=== PATIENT | female | born 1980 | race Caucasian/White ===

== ENCOUNTER 2019-05-12 17:10 | Emergency (ER) | payer OTHER ==
[2019-05-12 17:16] VITALS: BP 142/73
--- NOTE | 2019-05-12 17:35 | ED Physician Documentation ---
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 She has had some minimal amount of cramping and she i s now become concerned because she is having a little bit of blood every time she wipes. This is her first and she has not had her first obstetrical visit. She is otherwise healthy and does not feel ill otherwise. Review of Systems Constitutional: denies: Fever, Chills Eyes: denies: Decreased vision Ears: denies: Ear pain Nose: denies: Congestion Throat: denies: Sore throat Cardiac: denies: Chest pain / pressure Respiratory: denies: Dyspnea, Cough GI: reports: Nausea. denies: Abdominal Pain, Vomiting : reports: Vaginal bleeding. denies: Dysuria, Frequency Skin: denies: Rash Musculoskeletal: denies: Neck pain, Back pain PD PAST MEDICAL HISTORY - Past Medical History Past Medical History: No - Allergies Allergies/Adverse Reactions: Allergies Allergy/AdvReac Type Severity Reaction Status Date / Time No Known Drug Allergies Allergy Verified 05/12/19 17:12 - Social History Does the pt smoke?: No Smoking Status: Never smoker PD ED PE NORMAL - Vitals Vital signs reviewed: Yes (hypertensive ) - General General: Alert and oriented X 3, No acute distress, Well developed/nourished - HEENT HEENT: Atraumatic, PERRL - Respiratory Respiratory: No respiratory distress - Abdomen Abdomen: Normal bowel sounds, Soft, Non tender, Non distended, No organomegaly - Derm Derm: Normal color, Warm and dry, No rash - Extremities Extremities: No deformity, No edema - Neuro 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, 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 I am unable to specifically identify a fetus or heart rate. 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 I am not concerned now with ectopic as I believe I have identified the as existing in the uterus. Departure - Departure Disposition: 01 Home, Self Care Clinical Impression: First trimester bleeding, Intrauterine Condition: Stable Instructions: ED Care, ED Miscarriage Poss Follow-Up: KYA Pino [Provider Group]
== END 2019-05-12 18:52 | disposition home or self-care (01) ==
LOC: ED 17:10
DX: O20.9 Hemorrhage in early pregnancy, unspecified (principal); O09.511 Supervision of elderly primigravida, first trimester; Z3A.01 Less than 8 weeks gestation of pregnancy
CPT/HCPCS: 36415; 84702; 99282; 99283

== ENCOUNTER 2019-09-28 22:09 | Emergency (ER) | payer OTHER ==
--- NOTE | 2019-09-28 22:54 | ED Physician Documentation ---
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 She reports pelvic cramping but no severe pain she is unsure of her blood type but reports that previously she did receive RhoGam after her previous miscarriage.Denies any history of ectopic .) Review of Systems Constitutional: reports: Reviewed and negative Eyes: reports: Reviewed and negative Ears: reports: Reviewed and negative Nose: reports: Reviewed and negative Throat: reports: Reviewed and negative Cardiac: reports: Reviewed and negative Respiratory: reports: Reviewed and negative GI: reports: Reviewed and negative : reports: Vaginal bleeding, Now EGA (5 weeks) Skin: reports: Reviewed and negative Musculoskeletal: reports: Reviewed and negative Neurologic: reports: Reviewed and negative Psychiatric: reports: Reviewed and negative Endocrine: reports: Reviewed and negative Immunocompromised: reports: Reviewed and negative PD PAST MEDICAL HISTORY - Allergies Allergies/Adverse Reactions: Allergies Allergy/AdvReac Type Severity Reaction Status Date / Time No Known Drug Allergies Allergy Verified 09/28/19 22:13 - Social History Does the pt smoke?: No Smoking Status: Never smoker PD ED PE NORMAL - Vitals Vital signs reviewed: Yes - General General: Alert and oriented X 3, No acute distress, Well developed/nourished - HEENT HEENT: Atraumatic, PERRL, Pharynx benign - Neck Neck: Supple, no meningeal sign, No adenopathy - Cardiac Cardiac: RRR, No murmur, Strong equal pulses - Respiratory Respiratory: No respiratory distress, Clear bilaterally - Abdomen Abdomen: Normal bowel sounds, Soft, Non tender, Non distended, No organomegaly - Female Female : Deferred - Rectal Rectal: Deferred - Back Back: No CVA TTP, No spinal TTP - Derm Derm: Normal color, Warm and dry, No rash - Extremities Extremities: No deformity, No edema - Neuro 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, 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, No motor deficit, No sensory deficit, Normal speech - Psych Psych: Normal mood, Normal affect Results - Vitals Vitals: Vital Signs - 24 hr 09/28/19 09/29/19 22:13 02:14 Temperature 36.5 C Heart Rate 84 78 Respiratory 14 16 Rate Blood Pressure 143/81 H 136/80 H O2 Saturation 100 100 Oxygen O2 Source Room air - Labs Labs: Laboratory Tests 09/28/19 09/29/19 09/29/19 23:04 00:20 00:20 WBC 18.9 H RBC 4.41 Hgb 13.7 Hct 40.7 MCV 92.3 MCH 31.1 H MCHC 33.7 RDW 11.9 L Plt Count 304 MPV 9.6 Neut # (Auto) 16.2 H Lymph # (Auto) 1.4 L Forrest # (Auto) 1.0 Eos # (Auto) 0.1 Baso # (Auto) 0.1 Absolute Nucleated RBC 0.00 Nucleated RBC % 0.0 Sodium 134 L Potassium 3.7 Chloride 102 Carbon Dioxide 21 Anion Gap 11.0 BUN 11 Creatinine 0.7 Estimated GFR (MDRD) 94 Glucose 115 H Calcium 9.5 HCG, Quant Urine Color YELLOW Urine Clarity CLEAR Urine pH 5.0 Ur Specific [place] >=1.030 H Urine Protein NEGATIVE Urine Glucose (UA) NEGATIVE Urine Ketones NEGATIVE Urine Occult Blood LARGE H Urine Nitrite NEGATIVE Urine Bilirubin NEGATIVE Urine Urobilinogen 0.2 (NORMAL) Ur Leukocyte Esterase NEGATIVE Urine RBC TNTC H Urine WBC 0-3 Ur Squamous Epith Cells FEW Squamous Urine Bacteria None Seen Ur Microscopic Review INDICATED Urine Culture Comments NOT INDICATED Blood Type 09/29/19 09/29/19 00:20 00:40 WBC RBC Hgb Hct MCV MCH MCHC RDW Plt Count MPV Neut # (Auto) Lymph # (Auto) Forrest # (Auto) Eos # (Auto) Baso # (Auto) Absolute Nucleated RBC Nucleated RBC % Sodium Potassium Chloride Carbon Dioxide Anion Gap BUN Creatinine Estimated GFR (MDRD) Glucose Calcium HCG, Quant 1533.00 Urine Color Urine Clarity Urine pH Ur Specific [place] Urine Protein Urine Glucose (UA) Urine Ketones Urine Occult Blood Urine Nitrite Urine Bilirubin Urine Urobilinogen Ur Leukocyte Esterase Urine RBC Urine WBC Ur Squamous Epith Cells Urine Bacteria Ur Microscopic Review Urine Culture Comments Blood Type A NEGATIVE PD MEDICAL DECISION MAKING - ED course Complexity details: re-evaluated patient (updated Patient on results of ultrasound. No intrauterine gestation identified. will provide RhoGam to this patient and [facility] considered differential (miscarriage) Departure - Departure Disposition: Home, Self Care Clinical Impression: Miscarriage Condition: Stable Instructions: Miscarriage Dc Follow-Up: Nola Treviño MD [Primary Care Provider] - Tomorrow Discharge Date/Time: 09/29/19 02:15
[2019-09-28] MEDS ORDERED: SODIUM CHLORIDE 0.9% 1,000 ML IV ONE (23:03)
[2019-09-28] MEDS ORDERED: fentaNYL 100 MCG/2 ML VIAL IVP STA (23:03)
[2019-09-28 23:15] LABS: BILIRUBIN,URINE NEGATIVE (NEGATIVE); GLUCOSE, URINE (UA) NEGATIVE (NEGATIVE); KETONES,URINE (UA) NEGATIVE (NEGATIVE); LEUKOCYTE ESTERASE, URINE NEGATIVE (NEGATIVE); NITRITE,URINE NEGATIVE (NEGATIVE); OCCULT BLOOD,URINE LARGE (NEGATIVE); PROTEIN,URINE NEGATIVE (NEGATIVE); UROBILINOGEN,URINE 0.2 (NORMAL) E.U./dL (NORMAL)
[2019-09-28 23:29] LABS: BACTERIA,URINE None Seen /HPF (None Seen); CLARITY,URINE CLEAR (CLEAR); RBC,URINE TNTC /HPF (0-5); SQUAMOUS EPITHELIAL CELL,UR FEW Squamous (<= Few)
[2019-09-29 00:32] LABS: BASOPHILS # (AUTO) 0.1 10^3/uL (0.0-0.1); BASOPHILS % (AUTO) 0.6 %; EOSINOPHILS # (AUTO) 0.1 10^3/uL (0.0-0.7); EOSINOPHILS % (AUTO) 0.4 %; HGB - HEMOGLOBIN 13.7 g/dL (12.0-16.0); LYMPHOCYTES # (AUTO) 1.4 10^3/uL (1.5-3.5); LYMPHOCYTES % (AUTO) 7.5 %; MEAN CORPUSCULAR HEMOGLOBIN 31.1 pg (27.0-31.0); MEAN CORPUSCULAR HGB CONC 33.7 g/dL (32.0-36.0); MEAN CORPUSCULAR VOLUME 92.3 fL (81.0-99.0); MEAN PLATELET VOLUME 9.6 fL (7.9-10.8); MONOCYTES % (AUTO) 5.2 %; NEUTROPHILS # (AUTO) 16.2 10^3/uL (1.5-6.6); NEUTROPHILS % (AUTO) 85.7 %; PLT - PLATELET COUNT 304 10^3/uL (130-450); RED BLOOD COUNT 4.41 10^6/uL (4.20-5.40); RED CELL DISTRIBUTION WIDTH 11.9 % (12.0-15.0); WHITE BLOOD COUNT 18.9 x10^3/uL (4.8-10.8)
[2019-09-29 00:38] LABS: CALCIUM 9.5 mg/dL (8.5-10.3); CREATININE 0.7 mg/dL (0.4-1.0)
--- NOTE | 2019-09-29 00:46 | Ultrasound Report ---
Reason: First trimester bleeding Procedure Date: 09/28/2019 Accession Number: [id number] / [id number] Procedure: US - OB First Trimester CPT Code: Final Report FULL RESULT: EXAM: FIRST TRIMESTER OBSTETRIC ULTRASOUND (Less than 11 weeks) EXAM DATE: 09/28/2019 11:36 PM. CLINICAL HISTORY: First trimester bleeding. LMP: 06/06/2020. COMPARISONS: Outside exam is not currently available. TECHNIQUE: Transabdominal and transvaginal ultrasound examination with static image documentation. Pulsed Doppler and color Doppler performed with spectral analysis. CLINICAL DATES: EGA 7 weeks 4 days with NANCY 05/12/2020 based on LMP. ASSESSMENT: Gestational Sac: Not seen. Embryo: Not seen. Cardiac activity: Not seen. Yolk sac: Not seen. Amniotic fluid: Not seen. Early placenta: Not seen. Other: Endometrial thickness 13 mm. There is a 3 mm cystic structure in the endometrium. Additional complex endometrial focus seen in the lower uterine segment measuring 1.0 x 0.7 cm. MATERNAL STRUCTURES: Uterus: Anteverted. Unremarkable. Cervix: Closed. Right Ovary/Adnexa: The ovary measures 3.0 x 2.4 x 2.6 cm, volume 10.1 cc. Possible corpus luteum measuring 1.7 x 1.2 x 1.6 cm. Normal Doppler flow signal seen in the ovary. Peak systolic velocity 14.9 cm/s. Resistive index 0.64. Left Ovary/Adnexa: The ovary measures 2.2 x 1.0 x 1.5 cm, volume 1.6 cc. Unremarkable. Normal Doppler flow signal seen in the ovary. Peak systolic velocity 6.2 cm/s. Resistive index 0.77. Free Fluid: None. Other: None. IMPRESSION: 1. No intrauterine gestation identified. Recommend correlation with quantitative serum beta-hCG level and comparison with prior outside exam. 2. Ovaries appear normal. No adnexal mass or free fluid identified. RADIA
[2019-09-29] MEDS ORDERED: RHO(D) IMMUNE GLOBULIN 300 MCG SYRINGE IM STA (01:49)
[2019-09-29 02:15] VITALS: BP 136/80
== END 2019-09-29 02:15 | disposition home or self-care (01) ==
LOC: ED 22:09
DX: O03.9 Complete or unspecified spontaneous abortion without complication (principal)
CPT/HCPCS: 36415; 76801; 76817; 80048; 81001; 81003; 84702; 85025; 86900; 86901; 87086; 96372; 99284

== ENCOUNTER 2020-08-20 16:25 | Outpatient (CLI) | payer OTHER ==
--- NOTE | 2020-08-21 10:41 | Ultrasound Report ---
PROCEDURE: OB F/U or Repeat INDICATIONS: UTERINE SIZE DATE DISCREPANCY, LOW LYING PLACENTA OUTSIDE/PRIOR DATING DATA: Last menstrual period (LMP): 12/23/2019 according to prior report of 05/11/2020 02/10/2020. LMP-based estimated date of delivery (NANCY): 09/28/2020. First dating scan (date and location): 02/10/2020. Estimated date of delivery (NANCY) from first dating scan: 09/26/2020. It is noted that the ordering pro vider has noted a due date of 09/28/2020. TECHNIQUE: Real-time scanning was performed of the fetus, with image documentation and biometric measurements. COMPARISON: Ultrasound report 02/10/2020, 05/11/2020 FINDINGS: General: A single living intrauterine gestation is present. Presentation: Vertex Placenta: Placental position is suboptimally evaluated. However, no definitive low-lying appearance is identified. Amniotic fluid index: 17.5 cm, 69th percentile for gestational age. heart rate: 140 beats per minute. Maternal cervical canal: 4.3 cm long; normal length is 2.5 cm or more. biometrics: Biparietal diameter: 8.8 cm 35 weeks 3 days Head circumference: 32.1 cm 36 weeks 2 days Abdominal circumference: 3.1 cm 35 weeks 0 days Femur length: 6.7 cm 34 weeks 4 days Estimated gestational age from initial scan: 34 weeks 3 days Composite gestational age from present scan: 35 weeks 2 days Estimated weight and percentile: 2573 g 63rd percentile Measurement variability in biometric dating: +/- 10 days from 12-20 weeks gestation, +/- 2 weeks from 20-30 weeks gestation, +/- 3 weeks at 30 weeks gestation or more. Other: Not applicable. IMPRESSION: 1. Single live intrauterine . 2. No definitive low lying placenta is identified. Reviewed by: Leilani Jang MD on 08/21/2020 10:40 AM PST Approved by: Leilani Jang MD on 08/21/2020 10:40 AM PST Station ID: [id number]
== END 2020-08-20 16:26 | disposition home or self-care (01) ==
LOC: DI 16:25
PROVIDERS: ATTEND Nurse Practitioner Obstetrics & Gynecology
DX: O26.843 Uterine size-date discrepancy, third trimester (principal); O44.43 Low lying placenta NOS or without hemorrhage, third trimester; Z3A.35 35 weeks gestation of pregnancy

== ENCOUNTER 2020-09-01 08:00 | Outpatient (CLI) | payer OTHER | END 2020-09-01 23:59 | disposition home or self-care (01) | LOC: LAB.R 08:00 | PROVIDERS: ATTEND Nurse Practitioner Obstetrics & Gynecology | DX: O99.820 Streptococcus B carrier state complicating pregnancy (principal) | CPT/HCPCS: 87797 ==

== ENCOUNTER 2020-09-03 18:45 | Outpatient (CLI) | payer OTHER ==
--- NOTE | 2020-09-04 11:37 | Ultrasound Report ---
PROCEDURE: OB F/U or Repeat INDICATIONS: LOW LYING PLACENTA OUTSIDE/PRIOR DATING DATA: Last menstrual period (LMP): 12/23/2019. LMP-based estimated date of delivery (NANCY): 09/28/2020. First dating scan (date and location): 02/10/2020. Estimated date of delivery (NANCY) from first dating scan: 09/26/2020 by ultrasound. Of note, provider NANCY is 09/28/2020 by last menstrual period. TECHNIQUE: Real-time scanning was performed of the fetus, with image documentation and biometric measurements. Endovaginal scanning: No COMPARISON: Previous ultrasound dated 08/20/2001. FINDINGS: General: A single living intrauterine gestation is present. Presentation: Vertex Placenta: Placental position is right posterior, and the inferior margin of the placenta is not visu alized on the midline image; however no intervening placenta is seen between the internal cervical os and the head. Amniotic fluid index: 14 cm, 52nd for gestational age. heart rate: 166 beats per minute. Maternal cervical canal: 1.3 cm long; normal length is 2.5 cm or more. Estimated gestational age from initial scan: 36 weeks 3 days Other: Not applicable. IMPRESSION: 1. Living IUP redemonstrated with age estimated at 36 weeks 3 days by prior ultrasound. 2. Inferior margin of the placenta is not well seen on the current examination; although there is no intervening placenta seen between the head and the internal cervical os. If indicated, translab ial or endovaginal ultrasound could be performed for further assessment. Reviewed by: GERONIMO Harden on 09/04/2020 11:36 AM PST Approved by: Nabeel Becerril MD on 09/04/2020 11:36 AM PST Station ID: [id number]
--- NOTE | 2020-09-04 11:37 | Ultrasound Report ---
PROCEDURE: OB Transvaginal INDICATIONS: LOW LYING PLACENTA- TV IF NEEDED. TECHNIQUE: Endovaginal pelvic ultrasound. COMPARISON: Prior OB ultrasound also dated 09/03/2020 and 08/20/2020. FINDINGS: Limited endovaginal ultrasound of the cervix demonstrates normal cervical length and there is no endo cervical dilatation. The head is positioned on the internal cervical os and there is no interve masha placenta is seen between the head and the internal cervical os. The inferior margin of the placenta is not visualized. IMPRESSION: Limited exam demonstrating normal appearance of the cervix and there is no intervening placenta seen between the head and the internal cervical os. Of note, the inferior margin of the placenta is not clearly seen. Reviewed by: GERONIMO Harden on 09/04/2020 11:36 AM PST Approved by: Nabeel Becerril MD on 09/04/2020 11:36 AM PST Station ID: [id number]
== END 2020-09-03 18:46 | disposition home or self-care (01) ==
LOC: DI 18:45
PROVIDERS: ATTEND Nurse Practitioner Obstetrics & Gynecology
DX: O44.43 Low lying placenta NOS or without hemorrhage, third trimester (principal); Z3A.36 36 weeks gestation of pregnancy

== ENCOUNTER 2020-09-07 17:45 | Outpatient (CLI) | payer OTHER ==
--- NOTE | 2020-09-07 20:50 | Ultrasound Report ---
PROCEDURE: OB Transvaginal INDICATIONS: LOW LYING PLACENTA, CHECK VESSELS NEAR IOS TECHNIQUE: Both transabdominal and transvaginal scanning were performed. The findings are combining t o a single report contained within the "OB Limited" examination from today. IMPRESSION: Please refer to the dedicated additional OB study from today which contains the combined report for both transabdominal and transvaginal scanning. Reviewed by: Cahva Arango MD on 09/07/2020 8:49 PM PST Approved by: Chava Arango MD on 09/07/2020 8:49 PM PST Station ID: [id number]
--- NOTE | 2020-09-07 20:57 | Ultrasound Report ---
PROCEDURE: OB Limited INDICATIONS: LOW LYING PLACENTA, MEASURE PLACENTA LOCATION FROM CERVICAL IOS OUTSIDE/PRIOR DATING DATA: Last menstrual period (LMP): 12/23/2019. LMP-based estimated date of delivery (NANCY): 09/28/2020. First dating scan (date and location): 02/10/2020, [facility] Estimated date of delivery (NANCY) from first dating scan: 09/26/2020. TECHNIQUE: Real-time scanning was performed of the fetus, with image documentation. Endovaginal scanning: Utilized for placental tip visualization COMPARISON: 08/20/2020, 09/03/2020, this study. FINDINGS: A single living intrauterine gestation is present. Presentation: Vertex Placenta: Placental position is posterior, centered to the right, without previa. The placental tip was identified in relationship to the cervical canal, and the placental tip to internal os of the cer vical canal was measured at 3.6 cm. Amniotic fluid index: 13.8 cm, 51.8% for gestational age. heart rate: 139 beats per minutes. Maternal cervical canal: 4.1 cm long; normal length is 2.5 cm or more. Estimated gestational age from initial scan: 37 weeks 0 days. IMPRESSION: The study is targeted to establish length of the cervical canal (4.1 cm) and also length of the inferior tip of the placental margin in relationship to the internal os of the cervical canal (3.6 cm). Placenta previa is not suspected. Normal amniotic fluid volume. The delivery date is proje cted to be centered on 09/26/2020 from the reported first OB ultrasound 02/10/2020 at the [facility]. Reviewed by: Chava Arango MD on 09/07/2020 8:56 PM PST Approved by: Chava Arango MD on 09/07/2020 8:56 PM PST Station ID: [id number]
== END 2020-09-07 17:46 | disposition home or self-care (01) ==
LOC: DI 17:45
PROVIDERS: ATTEND Nurse Practitioner Obstetrics & Gynecology
DX: O44.43 Low lying placenta NOS or without hemorrhage, third trimester (principal); Z3A.37 37 weeks gestation of pregnancy

== ENCOUNTER 2020-09-21 13:00 | Observation (INO) | payer OTHER ==
[2020-09-21] MEDS ORDERED: TRANEXAMIC ACID IN NACL 1,000 MG/100 ML BAG IV PRN (14:08)
[2020-09-21] MEDS ORDERED: METHYLERGONOVINE 0.2 MG/ML VIAL IM PRN (14:08)
[2020-09-21] MEDS ORDERED: miSOPROStoL 200 MCG TABLET BC PRN (14:08)
[2020-09-21] MEDS ORDERED: OXYTOCIN 10 UNIT/ML VIAL IM PRN (14:08)
[2020-09-21] MEDS ORDERED: CARBOPROST TROMETHAMINE 250 MCG/ML AMP IM PRN (14:08)
[2020-09-21] MEDS ORDERED: OXYTOCIN/SODIUM CHLORIDE 500 ML IV PRN (14:08)
[2020-09-21] MEDS ORDERED: LIDOCAINE-MPF 1% 30 ML VIAL ID PRN (14:08)
[2020-09-21] MEDS ORDERED: SODIUM CHLORIDE FLUSH 0.9% 10 ML SYRINGE IVP PRN (14:08)
[2020-09-21] MEDS ORDERED: miSOPROStoL 100 MCG TABLET BC SCH (14:30)
[2020-09-21 14:51] LABS: BASOPHILS % (AUTO) 0.3 %; EOSINOPHILS # (AUTO) 0.1 10^3/uL (0.0-0.7); HGB - HEMOGLOBIN 11.4 g/dL (12.0-16.0); LYMPHOCYTES # (AUTO) 1.5 10^3/uL (1.5-3.5); LYMPHOCYTES % (AUTO) 15.4 %; MEAN CORPUSCULAR HEMOGLOBIN 31.8 pg (27.0-31.0); MEAN CORPUSCULAR HGB CONC 34.5 g/dL (32.0-36.0); MEAN CORPUSCULAR VOLUME 91.9 fL (81.0-99.0); MEAN PLATELET VOLUME 10.5 fL (7.9-10.8); MONOCYTES # (AUTO) 0.8 10^3/uL (0.0-1.0); MONOCYTES % (AUTO) 7.5 %; NEUTROPHILS # (AUTO) 7.5 10^3/uL (1.5-6.6); NEUTROPHILS % (AUTO) 75.3 %; PLT - PLATELET COUNT 231 10^3/uL (130-450); RED BLOOD COUNT 3.59 10^6/uL (4.20-5.40); RED CELL DISTRIBUTION WIDTH 13.2 % (12.0-15.0)
[2020-09-21] MEDS ORDERED: LACTATED RINGERS 1,000 ML IV SCH (15:00)
--- NOTE | 2020-09-21 15:36 | PROVIDER PROGRESS NOTE ---
- HPI Chief Complaint: Other - Procedures OB Procedure Performed: NST Diagnosis/Indication for NST: Other Service Date of procedure: 09/21/20 - Plan Plan: Mirella is a 39yo @ 39.0wks gestation by LMP c/w 10.4wk U/S who presents to [facility] for scheduled outpatient misoprostol administration for pre- induction cervical ripening in anticipation for elective induction of labor. She reports feeling well. She denies vaginal bleeding, leakage of fluid or contractions. She reports +FM. Initially her BP was slightly elevated however a repeat was WNL. She denies JOHNSON, visual disturbances, RUQ or epigastric pain. FHR baseline 130s, moderate variability, + accels, no decels Contractions irregular, mild with soft resting tone 50mcg BC misoprostol administered Continuous monitoring x 4 hours. Pt released home with precautions. Scheduled to return for elective IOL tomorrow at 0730. Pt verbalized understanding and agrees to above plan. She denies further questions or concerns at this time.
[2020-09-21] MEDS ORDERED: SODIUM CHLORIDE FLUSH 0.9% 10 ML SYRINGE IVP SCH (17:00)
== END 2020-09-21 19:05 | disposition home or self-care (01) ==
LOC: WFO 13:00 → FBP 13:39 → WFO 14:36
PROVIDERS: ADMIT Nurse Practitioner Obstetrics & Gynecology; ATTEND Nurse Practitioner Obstetrics & Gynecology
DX: Z34.83 Encounter for supervision of other normal pregnancy, third trimester (principal); Z3A.39 39 weeks gestation of pregnancy
CPT/HCPCS: 85025; 86850; 86900; 86901; 87635; A9270; G0378

== ENCOUNTER 2020-09-22 07:28 | Inpatient (IN) | payer OTHER, MEDICAID ==
[2020-09-22] MEDS ORDERED: miSOPROStoL 200 MCG TABLET BC PRN (07:50)
[2020-09-22] MEDS ORDERED: METHYLERGONOVINE 0.2 MG/ML VIAL IM PRN (07:50)
[2020-09-22] MEDS ORDERED: LIDOCAINE-MPF 1% 30 ML VIAL ID PRN (07:50)
[2020-09-22] MEDS ORDERED: CARBOPROST TROMETHAMINE 250 MCG/ML AMP IM PRN (07:50)
[2020-09-22] MEDS ORDERED: TRANEXAMIC ACID IN NACL 1,000 MG/100 ML BAG IV PRN (07:50)
[2020-09-22] MEDS ORDERED: SODIUM CHLORIDE FLUSH 0.9% 10 ML SYRINGE IVP PRN (07:50)
[2020-09-22] MEDS ORDERED: OXYTOCIN 10 UNIT/ML VIAL IM PRN (07:50)
[2020-09-22] MEDS: SODIUM CHLORIDE FLUSH 0.9% 10 ML SYRINGE IVP SCH ×2 (07:50→20:12)
[2020-09-22] MEDS ORDERED: OXYTOCIN/SODIUM CHLORIDE 500 ML IV PRN (07:50)
--- NOTE | 2020-09-22 07:58 | HISTORY & PHYSICAL EXAMINATION ---
Admit History - Visit Reason Visit Reason: Other - : 3 Parity: 0 Premature: 0 Ectopic: 0 : 2 Care: positive: [facility] Risk/History: positive: None Complications This : positive: Other Smoking Status: Never smoker - Mother's Labs Mother's Blood Type: positive: A Mother's RH: positive: Negative GBS: positive: Group B Step Negative Rubella Status: positive: Immune Meds/Allgy - Allergies Allergies/Adverse Reactions: Allergies Allergy/AdvReac Type Severity Reaction Status Date / Time No Known Drug Allergies Allergy Verified 09/28/19 22:13 Review of Systems - Constitutional Constitutional: denies: Fatigue, Chills - Eyes Eyes: denies: Blurred vision, Spots in vision, Dipolpia - Cardiovascular Cariovascular: denies: Irregular heart rate, Chest pain, Edema - Respiratory Respiratory: denies: SOB at rest - Gastrointestinal Gastrointestinal: denies: Change in bowel habits - Integumentary Integumentary: denies: Rash, Pruritis - Neurological Neurological: denies: Headache Physical - Abdominal Exam Contraction Frequency (min/apart): 150 : irregular Contraction Intensity: positive: Mild Uterine Resting Tone: positive: Soft - Monitoring Strip Review: positive: Category I - Presentation Presentation: positive: Vertex - Vaginal Exam Membranes: positive: Membranes intact - Speculum Exam Speculum Exam Performed: positive: No Plan for Labor - Plan For Labor I expect patient to be DC'd or transferred within 96 hours.: Yes Plan for Labor: Mirella is a 40yo @ 39.1 wks gestation by LMP c/w 10.2wk U/S who prese [facility] today for elective induction of labor. She denies vaginal bleeding or leakage of fluid. Reports occasional intermittent, menstrual-like cramping since yesterday afternoon that she has difficult distinguishing from movements. She reports +FM. She received 1 dose of 50mcg BC misoprostol yesterday (09/21/2020) and was monitored x 4 hours after which she was released home with precautions. She has been a patient of [facility] since her transfer of care from [facility] at 34wks gestation. She has received adequate, consistent care through the duration of her . She has had several BPs elevated in the range of 140s/80s in the office with repeat BPs being WNL. Upon arrival to the unit yesterday and intermittently during her 4 hour stay she had elevated BPs in 140s/80s-90s range and therefore has been given the diagnosis of gestational hypertension. She has been taking daily 81mg ASA since 16wks gestation. She has continued to deny JOHNSON, visual disturbances, RUQ or epigastric pain. She is noted to be Rh negative and did receive Rhogam at 28wks gestation per protocol. She was also noted to have a low lying placenta with several follow up ultrasound that reported poor visualization of placental edge, however the most recent ultrasound performed 09/07/2020 noted resolution with placental edge measuring 3.6cm from internal cervical os. She will be admitted to [facility] for active management. Dating Criteria: LMP 12/23/2019 Initial ultrasound @ 10.2wks c/w LMP dating Serial exams - agreed OB Hx: G1: 05/2019 - SAB G2: 09/2019 - SAB G3: current Medications: 81mg aspirin daily; Colace 50mg BID PRN; PNV; Vitamin B6 PRN Allergies: NKDA PMHx: Acquired left hallux valgus; De Quevain's disease of left writst; Onychomycosis of fingernails; synovitis and tenosynovitis Surgical Hx: lipoma on back removal (2019; [place] teeth extraction (2015) Social Hx: Never smoker; No ETOH or IVDA. 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 KARLA WNL 3VC. EFW 94%ti le. F/u US 08/20/2020 for placenta/growth/karla: "Placental position is suboptimally evaluated. However, no definitive low-lying appearance is identified" F/u ordered - unable to visualize placental location however no definitive low- lying placenta appearance is identified. KARLA WNL. EFW 63% F/u ordered - Placenta measured 3.6cm from cervical os. Low-lying placenta RESOLVED Glucola: 110 Influenza: 07/25/2020 TDAP 07/07/2020 GBS collected today HSV: denies in self and partner Breast pump Rx provided MOD: Anticipate ; It's a GIRL - Celena; desires unmedicated delivery; IOL scheduled 09/21/2020 pp contraception: natural family planning and condoms pap: 03/02/2020 - neg Physical Exam: Normocephalic, atraumatic Heart RRR w/o M/G/R Lungs CTAB Abdomen gravid, soft, nontender EFW 3700g FHR baseline 150, moderate variability, + accels, no decels Contractions palpate mild, intermittent with soft resting tone SVE deferred Bilateral LE's 1+ edema Mood is good. Partner supportive at the bedside. Assessment: 40yo @ 39.1wks gestation by LMP c/w 10.2wk U/S Gestational hypertension Elective IOL GBS negative Plan: Admit for induction of labor (initially deemed elective however now medical secondary to gestational HTN). PIH labs ordered - pending 50mcg BC misoprostol q 4 hrs Continuous monitoring Anticipate Pt verbalized understanding and agrees to above plan. She denies further questions or concerns at this time.
[2020-09-22] MEDS: miSOPROStoL 100 MCG TABLET BC SCH ×4 (08:27→17:30)
[2020-09-22 10:43] LABS: ALBUMIN 2.7 g/dL (3.2-5.5); ALBUMIN/GLOBULIN RATIO 0.8 (1.0-2.2); BILIRUBIN,TOTAL 0.4 mg/dL (0.2-1.0); CALCIUM 9.7 mg/dL (8.5-10.3); CREATININE 0.6 mg/dL (0.4-1.0); POTASSIUM 3.1 mmol/L (3.5-5.0); TOTAL PROTEIN 6.2 g/dL (6.7-8.2)
[2020-09-22 11:20] LABS: CREATININE,URINE 56.3 mg/dL
[2020-09-22 11:22] LABS: TOTAL PROTEIN,URINE TIMED < 6 mg/dL
--- NOTE | 2020-09-22 16:00 | PROVIDER PROGRESS NOTE ---
Labor Progress Note - Uterine Monitoring Uterine Monitoring Mode: positive: External toco Contraction Frequency (min/apart): 2-4 Contraction Intensity: positive: Mild Uterine Resting Tone: positive: Soft - Monitoring Monitor Mode: positive: External ultrasound Heart Rate Baseline: 150 Heart Rate Variability: positive: Moderate (6-25 bmp) Accelerations: positive: Present, 15x15 Decelerations: positive: None Strip Review: positive: Category I - Labor Progress Note Labor Progress Note/Additional Text: S: Pt sitting on exercise ball at the bedside. States she is feeling mild menstrual-like cramping but nothing overly uncomfortable. She was able to get a small nap in and feels well rested. Thinking she should be able to sleep fine tonight but would like an ambien available if needed. is supportive at the bedside. O: BP 140s/80s, HR 75, T 36.6 FHR baseline 150, moderate variability, + accels, no decels Contractions palpate mild every 2-7 min with soft resting tone SVE deferred A: 40yo @ 39.1wks gestation Gestational HTN Medical IOL with pre-induction cervical ripening GBS neg FHR Category I P: Continue pre-induction cervical ripening with 50mcg BC misoprostol q 4hrs Continuos monitoring Ambien order placed for tonight PRN Encouraged ambulation and position changes Pt verbalized understanding and agrees to above plan. She denies further questions or concerns at this time.
[2020-09-22] MEDS ORDERED: ONDANSETRON 4 MG/2 ML VIAL IVP PRN ×2 (19:31→22:55)
[2020-09-22] MEDS ORDERED: CALCIUM CARBONATE CHEW 500 MG TABLET PO PRN (19:47)
--- NOTE | 2020-09-22 20:55 | PROVIDER PROGRESS NOTE ---
Labor Progress Note - Uterine Monitoring Uterine Monitoring Mode: positive: External toco Contraction Frequency (min/apart): 2-3 Contraction Intensity: positive: Moderate to strong Uterine Resting Tone: positive: Soft - Monitoring Monitor Mode: positive: External ultrasound Heart Rate Baseline: 140 Heart Rate Variability: positive: Moderate (6-25 bmp) Accelerations: positive: Present, 15x15 Decelerations: positive: None Strip Review: positive: Category I - Vaginal Exam Dilation (in cm): 5 Effacement (%): 80 Station: -2 Cervical Position: Midposition - Labor Progress Note Labor Progress Note/Additional Text: S: Breathing through contractions with support of partner at the bedside. She reports feeling some increased pressure with contractions. Has not been able to have a bowel movement in the past couple of days despite trying yesterday morning. She is coping well with contractions. Her is supportive at the bedside. O: BP 150s/90s. FHR baseline 140s, moderate variability, + accels, no decels Contractions palpate moderate every 2-3 minutes with soft resting tone SVE 5/80/-2, mid position, medium consistency. Vertex. Membranes intact. A: 40yo @ 39.1wks gestation by LMP c/w 10.2wk U/S Gestational HTN GBS neg FHR Category I S/p 3 doses of 50mcg BC misoprostol P: Intermittent monitoring Milk of magnesia now for constipation Encouraged ambulation and position changes. Jacuzzi PRN. Nitrous oxide PRN. Epidural per maternal request. Anticipate . Pt verbalized understanding and agrees to above plan. She denies further questions or concerns at this time.
[2020-09-22] MEDS ORDERED: MAGNESIUM HYDROXIDE 2,400 MG/30 ML UDC PO PRN (20:56)
[2020-09-22] MEDS ORDERED: ZOLPIDEM 5 MG TABLET PO PRN (22:00)
[2020-09-22] MEDS: LACTATED RINGERS 1,000 ML IV SCH (22:00)
[2020-09-22] MEDS ORDERED: ROPIVACAINE 0.2% 200 MG/100 ML BAG EP ONE (22:27)
[2020-09-22] MEDS ORDERED: ePHEDrine 50 MG/ML VIAL IVP PRN (22:55)
[2020-09-22] MEDS ORDERED: NALOXONE 0.4 MG/ML VIAL IVP PRN (22:55)
[2020-09-22] MEDS ORDERED: ROPIVACAINE 0.2% 200 MG/100 ML BAG EP PRN (22:55)
[2020-09-22] MEDS ORDERED: diphenhydrAMINE INJ 50 MG/ML VIAL IVP PRN (22:55)
[2020-09-22] MEDS ORDERED: NALBUPHINE 10 MG/ML AMP IVP PRN (22:55)
[2020-09-22] MEDS ORDERED: METOCLOPRAMIDE 10 MG/2 ML VIAL IVP PRN (22:55)
--- NOTE | 2020-09-22 22:58 | ANESTHESIA ---
Pre-Anesthesia VS, & Labs - Diagnosis IUP term labor - Procedure labor epidural Vital Signs: Temp Pulse Resp BP Pulse Ox 37.0 C 80 20 148/88 H 09/22/20 07:56 09/22/20 07:56 09/22/20 07:56 09/22/20 07:56 Height: 5 ft 10.5 in Weight (kg): 102.965 kg Body Mass Index: 32.1 BMI Classification: Obese - NPO Last Fluid Intake: t/o day Last Food Intake: full dinner - Is Patient ?: Yes - Lab Results Current Lab Results: Laboratory Tests 09/22/20 10:05: Sodium 133 L, Potassium 3.1 L, Chloride 100 L, Carbon Dioxide 21, Anion Gap 12.0, BUN 5 L, Creatinine 0.6, Estimated GFR (MDRD) 111, Glucose 109 H, Calcium 9.7, Total Bilirubin 0.4, AST 17, ALT 13, Alkaline Phosphatase 146 H, Total Protein 6.2 L, Albumin 2.7 L, Globulin 3.5, Albumin/Globulin Ratio 0.8 L Lab results reviewed: Yes Fish Bones: 09/22/20 10:05 Home Medications and Allergies Active Medications Calcium Carbonate/Glycine (Calcium Carbonate Chew 500 Mg Tablet) 500 mg PO BID PRN PRN Reason: NEEDED PER PROVIDER ORDERS Last Admin: 09/22/20 20:12 Dose: 500 mg Documented by: Carboprost Tromethamine (Carboprost Tromethamine 250 Mcg/Ml Amp) 250 mcg IM Q15M PRN PRN Reason: Step 4: Hemorrhage protocol Stop: 09/27/20 07:50 Oxytocin/Sodium Chloride (Pitocin/Sodium Chloride) 500 mls @ 999 mls/hr IV PRN PRN; Protocol PRN Reason: POST- HEMORR PREVENTION Stop: 09/27/20 07:50 Tranexamic Acid (Tranexamic 1,000 Mg/100ml-Nacl) 1,000 mg in 100 mls @ 600 mls/hr IV .ONCE PRN PRN Reason: EBL >1200mL and within 3hr Stop: 09/27/20 07:50 Lactated Ringer's (Lr) 1,000 mls @ 100 mls/hr IV .Q10H EZRA Lidocaine HCl (Lidocaine-Mpf 1% 30 Ml Vial) 30 ml ID .ONCE PRN PRN Reason: PERINEAL REPAIR Stop: 09/27/20 07:50 Magnesium Hydroxide (Magnesium Hydroxide 2,400 Mg/30 Ml Udc) 2,400 mg PO ONCE PRN PRN Reason: Constipation Stop: 09/22/20 23:59 Last Admin: 09/22/20 21:17 Dose: 2,400 mg Documented by: Methylergonovine Maleate (Methylergonovine 0.2 Mg/Ml Vial) 0.2 mg IM .ONCE PRN PRN Reason: Step 2: Hemorrhage protocol Stop: 09/27/20 07:50 Misoprostol (Misoprostol 200 Mcg Tablet) 800 mcg BC .ONCE PRN PRN Reason: Step 3: Hemorrhage protocol Stop: 09/27/20 07:50 Ondansetron HCl (Ondansetron 4 Mg/2 Ml Vial) 4 mg IVP Q4HR PRN PRN Reason: Nausea / Vomiting Last Admin: 09/22/20 20:12 Dose: 4 mg Documented by: Oxytocin (Oxytocin 10 Unit/Ml Vial) 10 unit IM .ONCE PRN PRN Reason: Step one: If no IV access Stop: 09/27/20 07:50 Sodium Chloride (Sodium Chloride Flush 0.9% 10 Ml Syringe) 10 ml IVP 0100,0900,1700 EZRA Last Admin: 09/22/20 20:12 Dose: 10 ml Documented by: Sodium Chloride (Sodium Chloride Flush 0.9% 10 Ml Syringe) 10 ml IVP PRN PRN PRN Reason: NEEDED PER PROVIDER ORDERS Allergies/Adverse Reactions: Allergies Allergy/AdvReac Type Severity Reaction Status Date / Time No Known Drug Allergies Allergy Verified 09/28/19 22:13 Anes History & Medical History - Anesthetic History Anesthesia Complications: reports: No previous complications Family history of Anesthesia Complications: Denies Family history of Malignant Hyperthermia: Denies - Medical History Cardiovascular: reports: None, Hypertension (last few visits, no pre-e diagnosis) Pulmonary: reports: None Urinary: reports: None Neuro: reports: None Musculoskeletal: reports: Other (low back pain) Smoking Status: Never smoker History of Cancer?: No - Surgical History Other Past Surgical History: lipoma removals, breast biopsy - Obstetrical History : 3 Parity: 0 Events: positive: None Complications: positive: Other Exam General: Alert, Oriented x3, Cooperative Dental: WNL Mouth Openin Fingerbreadth Neck Mobility: Normal Mallampati classification: II Thyromental Distance: 4-6 cm Respiratory: No respiratory distress Cardiovascular: Regular rate Neurological: Normal speech Mental/Cognitive Status: Alert/Oriented X3, Normal for patient Cognitive Status: Within normal limits Plan Anesthesia Type: Epidural Consent for Procedure(s) Verified and Reviewed: Yes Code Status: Attempt Resuscitation ASA classification: 2-Mild systemic disease Is this case an emergency?: No
[2020-09-22] MEDS ORDERED: TERBUTALINE 1 MG/ML VIAL SUBQ ONE (23:35)
[2020-09-23] MEDS: LACTATED RINGERS 1,000 ML IV SCH ×3 (02:44→17:14)
[2020-09-23] MEDS ORDERED: HYDROCORTISONE 1% CREAM 28 GM TUBE PR PRN (02:48)
[2020-09-23] MEDS ORDERED: WITCH HAZEL/GLYCERIN 1 PAD TOP PRN (02:48)
--- NOTE | 2020-09-23 03:10 | DELIVERY NOTE ---
Delivery Note - Labor Labor: positive: Spontaneous - Delivery Method Delivery Method: positive: Spontaneous vaginal delivery - Cervical Ripening Method Cervical Ripening Method: positive: Misoprostil - Presentation Presentation: positive: Vertex, OA - occiput anterior - Nuchal Cord Nuchal Cord: positive: Present, Reduced - Amniotic Fluid Description Amniotic Fluid Description: positive: Clear - Episiotomy Type Episiotomy Type: positive: None - Laceration Laceration: positive: None - Delivery Outcome Delivery Outcome: positive: Livebirth - [place]: positive: Placed in direct skin contact with mother, Bulb syringe, Stimulated, Warmed, Crook used [place] sex: positive: Female - Cord Cord: positive: 3 vessels - Placenta Placenta: positive: Intact, Spontaneous - Estimated Blood Loss Estimated Blood Loss (in cc): 825 - Post Delivery Events Post Delivery Events: positive: Hemorrhage - Delivery Comments (Free Text/Narrative) Delivery Comments (Free Text/Narrative): This 40yo @ 39.2wks gestation by LMP c/w 10.2wk U/S presented on 09/21/2020 for pre-induction cervical ripening with misoprostol. She received 50mcg BC misoprostol and was monitored x 4 hours at which time she was released home with precautions. She returned on 09/22/2020 for induction of labor and secondary to intermittent but persistently elevated blood pressures she was given the diagnosis of gestational hypertension. 50mcg BC misoprostol was administered q 4hrs for a total of 2 doses. Patient entered an active labor pattern at that time and no further medication was administered for induction or augmentation. Epidural placed per maternal request. FHR pattern demonstrated overall Category I pattern with brief period of Category II pattern following placement of epidural anesthesia and resulting hypotension. This was resolved with fluid bolus, position changes, and administration of ephedrine 10mg x once. SROM occurred at approximately 2200 and was noted to be a small amount of clear fluid. Patient progressed to c/c/0 at 2323 with onset of pushing at 2324. : Normal of viable female on 09/23/2020 @ 0154. Nuchal cord x 1 was reduced. The was placed on maternal abdomen, stimulated, dried, and placed skin to skin. 's were 7/9 at 1 and 5 min respectively. Pitocin administered via IV for hemostasis. The umbilical cord was allowed to stop pulsating at which time it was doubly clamped by CNM and cut by FOB. Cord blood was obtained. Fundal massage and gentle cord traction applied for active management of the third stage. Placenta delivered spontaneously and intact @ 0159. 3VC. Fourth stage: Followed delivery of placenta, brisk vaginal bleeding was noted. Vigorous fundal massage revealed adequate uterine tone. 800mcg rectal misoprostol administered with little improvement in rate of bleeding. Methergine was not administered sceondary to diagnosis of gestational hypertension. He mabate 250mcg IM administered. Continued infusion of pitocin bolus with continuos fundal massage applied. Tranexamic acid 1g administered via IV. The perineum, vagina, and cervix were inspected thoroughly and found to be intact. Vaginal bleeding responded to medication management. Quantified blood loss 825mL. Patient remained hemodynamically stable as evidence by denying symptoms and normal vital signs throughout. initiated. Family bonding well. Both mother and baby were left in stable condition.
[2020-09-23] MEDS: IBUPROFEN 800 MG TABLET PO SCH ×4 (04:10→22:59)
[2020-09-23] MEDS: ACETAMINOPHEN 500 MG TABLET PO SCH ×3 (04:10→20:07)
[2020-09-23 07:19] LABS: HCT - HEMATOCRIT 32.2 % (37.0-47.0); HGB - HEMOGLOBIN 11.1 g/dL (12.0-16.0); MEAN CORPUSCULAR HEMOGLOBIN 32.2 pg (27.0-31.0); MEAN CORPUSCULAR HGB CONC 34.5 g/dL (32.0-36.0); MEAN CORPUSCULAR VOLUME 93.3 fL (81.0-99.0); MEAN PLATELET VOLUME 10.3 fL (7.9-10.8); RED BLOOD COUNT 3.45 10^6/uL (4.20-5.40); RED CELL DISTRIBUTION WIDTH 13.2 % (12.0-15.0); WHITE BLOOD COUNT 19.4 x10^3/uL (4.8-10.8)
[2020-09-23] MEDS: SODIUM CHLORIDE FLUSH 0.9% 10 ML SYRINGE IVP SCH ×3 (08:00→17:14)
--- NOTE | 2020-09-23 09:40 | PROVIDER PROGRESS NOTE ---
Subjective - Subjective Subjective: S: Bonding well with baby. Working with nurse on . States baby seems to want to eat every hour for 15-20minutes. She denies JOHNSON, dizziness, or light headedness. Her bleeding has decreased and is light. Pain well controlled with oral medications and she states the ice pack to her perineum helps significantly. supportive at the bedside. O: Hgb 11.4-->11.1 Hct 33.0-->32.2 BP 144/79, T 36.9, HR 77, RR 16 A: 40yo -->P1 day of delivery A/p pp hemorrhage (825mL) P: Continue routine pp care and medications. Pt verbalized understanding and agrees to above plan. She denies further questions or concerns at this time. Objective - Vital Signs/Intake & Output Vital Signs: Vital Signs x48h Temp Pulse Resp BP Pulse Ox 09/23/20 09:31 36.9 C 77 16 144/79 H 99 09/23/20 06:35 91 16 147/72 H 99 09/23/20 05:22 36.9 C 81 16 138/71 H 99 09/23/20 04:00 93 18 136/76 H 09/23/20 03:48 89 21 130/73 09/23/20 03:33 86 19 130/73 09/23/20 03:19 36.8 C 88 16 137/77 H 09/23/20 03:00 90 20 144/76 H 09/23/20 02:45 97 18 135/95 H 09/23/20 02:30 98 16 138/54 H 09/23/20 02:10 85 16 130/62 Intake & Output: Intake & Output 09/20/20 09/21/20 09/22/20 09/23/20 23:59 23:59 23:59 23:59 Intake Total 0 1976.667 Output Total 850 Balance 0 1126.667 - Lab Results Fish Bones: 09/23/20 07:01 09/22/20 10:05 Other Labs: Lab Results x24hrs 09/23/20 09/23/20 09/22/20 Range/Units 07:01 07:01 10:10 WBC 19.4 H (4.8-10.8) x10^3/uL RBC 3.45 L (4.20-5.40) 10^6/uL Hgb 11.1 L (12.0-16.0) g/dL Hct 32.2 L (37.0-47.0) % MCV 93.3 (81.0-99.0) fL MCH 32.2 H (27.0-31.0) pg MCHC 34.5 (32.0-36.0) g/dL RDW 13.2 (12.0-15.0) % Plt Count 209 (130-450) 10^3/uL MPV 10.3 (7.9-10.8) fL Sodium (135-145) mmol/L Potassium (3.5-5.0) mmol/L Chloride (101-111) mmol/L Carbon Dioxide (21-32) mmol/L Anion Gap (6-13) BUN (6-20) mg/dL Creatinine (0.4-1.0) mg/dL Estimated GFR (MDRD) (>89) Glucose (70-100) mg/dL Calcium (8.5-10.3) mg/dL Total Bilirubin (0.2-1.0) mg/dL AST (10-42) IU/L ALT (10-60) IU/L Alkaline Phosphatase (42-121) IU/L Total Protein (6.7-8.2) g/dL Albumin (3.2-5.5) g/dL Globulin (2.1-4.2) g/dL Albumin/Globulin Ratio (1.0-2.2) Urine Creatinine 56.3 mg/dL Ur Total Protein Timed < 6 mg/dL Protein/Creatinin Ratio Not Reportable Blood Type A NEGATIVE 09/22/20 Range/Units 10:05 WBC (4.8-10.8) x10^3/uL RBC (4.20-5.40) 10^6/uL Hgb (12.0-16.0) g/dL Hct (37.0-47.0) % MCV (81.0-99.0) fL MCH (27.0-31.0) pg MCHC (32.0-36.0) g/dL RDW (12.0-15.0) % Plt Count (130-450) 10^3/uL MPV (7.9-10.8) fL Sodium 133 L (135-145) mmol/L Potassium 3.1 L (3.5-5.0) mmol/L Chloride 100 L (101-111) mmol/L Carbon Dioxide 21 (21-32) mmol/L Anion Gap 12.0 (6-13) BUN 5 L (6-20) mg/dL Creatinine 0.6 (0.4-1.0) mg/dL Estimated GFR (MDRD) 111 (>89) Glucose 109 H (70-100) mg/dL Calcium 9.7 (8.5-10.3) mg/dL Total Bilirubin 0.4 (0.2-1.0) mg/dL AST 17 (10-42) IU/L ALT 13 (10-60) IU/L Alkaline Phosphatase 146 H (42-121) IU/L Total Protein 6.2 L (6.7-8.2) g/dL Albumin 2.7 L (3.2-5.5) g/dL Globulin 3.5 (2.1-4.2) g/dL Albumin/Globulin Ratio 0.8 L (1.0-2.2) Urine Creatinine mg/dL Ur Total Protein Timed mg/dL Protein/Creatinin Ratio Blood Type
[2020-09-23] MEDS: DOCUSATE SODIUM 100 MG CAPSULE PO SCH ×2 (10:12→23:00)
[2020-09-24] MEDS: ACETAMINOPHEN 500 MG TABLET PO SCH ×2 (04:01→13:13)
[2020-09-24] MEDS: IBUPROFEN 800 MG TABLET PO SCH ×2 (05:10→13:13)
[2020-09-24] MEDS: DOCUSATE SODIUM 100 MG CAPSULE PO SCH (08:34)
[2020-09-24] MEDS ORDERED: RHO(D) IMMUNE GLOBULIN 300 MCG SYRINGE IM ONE (10:50)
[2020-09-24 11:43] VITALS: BP 147/81
--- NOTE | 2020-09-24 12:31 | PROVIDER PROGRESS NOTE ---
Subjective - Subjective Subjective: FINAL PROGRESS NOTE: S: Bonding well with baby. without difficulty. Pain well controlled with oral medications. Bleeding decreased and is light/moderate. Mood is good. They report they are ready to go home today. supportive at the bedside. O: BP 147/81, T 36.6, HR 75, RR 18 HEart RRR w/o M/G/R, lungs CTAB, abdomen soft and nontender with fundus firm at U-2, perineum intact, light lochia rubra, bilateral LE's trace edema. A: 40yo -->P1 PPD#1 s/p TSVD of viable female s/p PP hemorrhage (825mL)- asymptomatic Rh- negative -s/p Rhogam administration P: Reviewed pp self care and warning s/sx. Pt has emergency contact information. Pt intends to f/u in 1 week at [facility] with myself or sooner PRN. Pt verbalized understanding and agrees to above plan. She denies further questions or concerns at this time. Objective - Vital Signs/Intake & Output Vital Signs: Vital Signs x48h Temp Pulse Resp BP Pulse Ox 09/24/20 10:00 36.6 C 75 18 147/81 H 99 Intake & Output: Intake & Output 09/21/20 09/22/20 09/23/20 09/24/20 23:59 23:59 23:59 23:59 Intake Total 0 1976.667 Output Total 850 Balance 0 1126.667 - Lab Results Fish Bones: 09/23/20 07:01 09/22/20 10:05
--- NOTE | 2020-09-24 12:32 | Discharge Plan ---
Discharge Plan Problem Reviewed?: Yes Disposition: Home, Self Care Condition: Good Diet: Regular Activity Restrictions: No Restrictions Shower Restrictions: No Driving Restrictions: No Weight Bearing: Full Weight No Smoking: If you smoke, Please STOP! Call for help. Follow-up with: Diana Lim CNM, ARNP [Provider Admit Priv/Credential] -
--- NOTE | 2020-09-24 13:20 | DISCHARGE SUMMARY ---
Physician: ALICIA Noble DATE OF ADMISSION: 09/22/2020 DATE OF DISCHARGE: 09/24/2020 DIAGNOSES ON ADMISSION 1. A 40-year-old G3, P0-0-2-0, at 39.1 weeks' gestation. 2. Gestational hypertension. 3. Induction of labor. 4. Group B Streptococcus negative. 5. Rh negative. DIAGNOSES ON DISCHARGE 1. A 40-year-old G3, P1-0-2-1, status post spontaneous vaginal delivery on 09/23/2020. 2. . 3. Normal recovery. 4. Status post RhoGAM on 09/24/2020. HISTORY OF PRESENT ILLNESS: She is a patient of [facility], who presented on 09/21/2020 for preinduction cervical ripening with misoprostol. She received one dose of 50 mcg buccal misoprostol and was released home with precautions. She returned on 09/22/2020 for induction of labor and secondary to intermittent, but persistently elevated blood pressure. She was given the diagnoses of gestational hypertension. She was given preinduction cervical ripening with 50 mcg of buccal misoprostol q.4 hours for a total of 2 doses. She received an epidural per her request. She progressed to complete and spontaneously delivered a viable female on 09/23/2020 at 0154. Apgars were 7 and 9 at one and five minutes, respectively. Quantified blood loss 825 mL. The perineum, vagina, and cervix were inspected and found to be intact. She has been doing well in her course. She is ambulating and tolerating a regular diet. She is urinating without difficulty, and her lochia is normal. Her pain is well controlled with oral medications. She received RhoGAM on 09/24/2020. She will be discharged home today on day #1 with instructions to continue taking her vitamin while and to continue taking ibuprofen and Tylenol [id number] as needed for pain management. She intends to follow up with myself at [facility] in 1 week for routine visit or sooner if needed. She has been given precautions to call if she has any worsening fevers, chills, abdominal pain, increased bleeding, or foul-smelling vaginal lochia. TD: 09/24/2020 12:38 MTDD
--- NOTE | 2020-09-24 18:24 | Labor Flowsheet ---
Labor Flowsheet Datetime Report Generated by CPN: 09/24/2020 18:24 Datetime: 09/24/2020 11:40 VITAL SIGNS NBP Sys/Elvira/Mean (mmHg): 147 : 81 : 95 Pulse: 75 LaborFlag: Labor Datetime: 09/23/2020 03:20 SpO2 (%): 100 Datetime: 09/23/2020 03:02 Membranes Ruptured Date/Time: 09/22/2020 22:00 Membranes Rupture Method: Spontaneous Datetime: 09/23/2020 01:59 Stage 2 Comments: placenta delivered spontaneously, intact and routine discard Datetime: 09/23/2020 01:45 UTERINE ACTIVITY Monitor Mode: External Frequency (min): 2-2.5 Quality: Strong Duration (sec): 90-140 Pattern: Normal: <= 5 Contractions in 10 Minutes Resting Tone (Palpate): Relaxed ASSESSMENT A Monitor Mode: Telemetry FHR Baseline Rate : 150 Variability: Moderate 6-25 bpm Accelerations: 15X15 Decelerations: Variable Category: Category II Datetime: 09/23/2020 01:34 STAGE 2 Pushing: Coached on Pushing Pushing Position: Pushing with Contractions (Annotations: pushing by grabbing behind knees) Datetime: 09/23/2020 01:31 Temperature (C): 36.8 Datetime: 09/23/2020 01:19 Pushing Progress: Descent with Pushing Datetime: 09/23/2020 00:32 I/O Interventions: Straight Cath (ml) @ 100 Datetime: 09/23/2020 00:30 Comments: FHT seen ranging from 100s-190s Datetime: 09/22/2020 23:45 Oxygen Method: Room Air Datetime: 09/22/2020 23:23 VAGINAL EXAM Dilatation (cm): 10.0 Effacement (%): 100 Exam by: Raphael CNM Vaginal Exam Comments: complete Datetime: 09/22/2020 23:14 COMMUNICATION Communication: Provider at Bedside Provider Notified (Name): Raphael CNM Communication Comments: CNM here Datetime: 09/22/2020 23:05 MEDICATIONS Magnesium/Antihypertensives: Ephedrine IV (mg) @ 10 Medication Comments: given by ASSISTANT PRESSMAN Datetime: 09/22/2020 23:03 Patient Position/Activity: Left Lateral Datetime: 09/22/2020 23:02 Monitor Interventions for FHR: Ultrasound Adjusted Datetime: 09/22/2020 22:59 PATIENT CARE IV/Blood Work: IV Bolus Started Patient Care Comments: peanut ball in place Datetime: 09/22/2020 22:49 Station: 0 Vaginal Bleeding: Normal Show Cervix, Consistency: Soft Cervix, Position: Anterior Datetime: 09/22/2020 22:34 Epidural Procedure Other: Single Dose Datetime: 09/22/2020 22:31 Epidural Procedure: Cath Placed Datetime: 09/22/2020 22:24 PROCEDURE TIME OUT Procedure Type: For epidural placement Procedure Verify: Correct Patient Identity; Correct Side and Site are Marked; Accurate Procedure Co nsent Form; Agreement on Procedure to be Done; Correct Patient Position; Addressed Need to Administer Antibiotics or Fluids for Irrigation; Safety Precautions Based on Patient History or Medication Use ANESTHESIA Anesthesia Plans: Epidural Epidural Positioning: Sitting Datetime: 09/22/2020 21:58 Stage of : Labor Provider Reviewed Strip: No Notification Reason: Status Update; Pain; Patient Request Datetime: 09/22/2020 21:30 Actions for Decelerations: Hands and Knees Datetime: 09/22/2020 20:10 PAIN Pain Scale: 7 Pain Presence: Intermittent Pain Type: Contraction; Pressure Pain Location: Abdomen; Back Pain Relief Measures: Comfort Measures Pain Coping: Breathing Through Contractions Comfort Measures: Breathing/Relaxation Datetime: 09/22/2020 19:44 Antiemetics/Antacids: Zofran (mg) @ 4 Datetime: 09/22/2020 19:02 FHR Baseline Changes: No Baseline Change Datetime: 09/22/2020 18:41 Hygiene: Underpad Changed; Linens Changed Datetime: 09/22/2020 18:08 Pain Goal: 7 Datetime: 09/22/2020 14:30 Contraction Comments: ctx unchanged per pt. "did feel a little pressure with last two ctx's though" Datetime: 09/22/2020 13:36 Forceps: cnm will notify MD of 3.1K Datetime: 09/22/2020 13:30 Cervical Ripening Agents: Cytotec @ Datetime: 09/22/2020 12:10 Temperature Route: Oral (Annotations: pt. was eating soup) Datetime: 09/22/2020 08:41 Monitor Interventions for UA: [place] Adjusted
== END 2020-09-24 15:55 | disposition home or self-care (01) | DRG 807 ==
LOC: WFO 07:28 → FBP 07:35 → WFO 07:49 → FBP 07:50
PROVIDERS: ADMIT Nurse Practitioner Obstetrics & Gynecology; ATTEND Nurse Practitioner Obstetrics & Gynecology
PROC: 10E0XZZ Delivery of Products of Conception, External Approach (ICD-10-PCS; principal; 2020-09-23)
DX: O13.4 Gestational [pregnancy-induced] hypertension without significant proteinuria, complicating childbirth (principal); Z37.0 Single live birth; O69.81X0 Labor and delivery complicated by cord around neck, without compression, not applicable or unspecified; O26.893 Other specified pregnancy related conditions, third trimester; Z67.11 Type A blood, Rh negative; O72.1 Other immediate postpartum hemorrhage; Z3A.39 39 weeks gestation of pregnancy; Z79.82 Long term (current) use of aspirin
CPT/HCPCS: 80053; 82570; 83033; 84156; 85027; 86900; 86901; A9270; J7120; 85025